=== PATIENT | female | born 1960 | race Hispanic/Latino ===

== ENCOUNTER 2018-01-03 13:21 | Emergency (ER) | payer MEDICARE ==
[~2018-01-03 13:21] MED LIST: ASPI-1005 PO; ATOR-2 PO; CILO100T PO; CLOP75TA32 PO; GLYB5TAB8 PO; INSNOV SQ; INSU100V12 SQ; LOSA50TA37 PO; METF10004 PO; METO25TA3 PO
[2018-01-03] MEDS ORDERED: HYDROCODONE/ACETAMINOPHEN 5/325 MG TAB ONE (14:33)
== END 2018-01-03 15:25 | disposition home or self-care (01) ==
LOC: EDH 13:21
DX: S52.615A Nondisplaced fracture of left ulna styloid process, initial encounter for closed fracture (principal); E11.9 Type 2 diabetes mellitus without complications; I10 Essential (primary) hypertension; E78.5 Hyperlipidemia, unspecified; I25.10 Atherosclerotic heart disease of native coronary artery without angina pectoris; Z87.891 Personal history of nicotine dependence; W18.39XA Other fall on same level, initial encounter; Y93.89 Activity, other specified; Y92.098 Other place in other non-institutional residence as the place of occurrence of the external cause; Y99.8 Other external cause status
CPT/HCPCS: 29125; 73110